=== PATIENT | male | born 1950 | race Caucasian/White ===

== ENCOUNTER 2023-04-02 08:44 | Observation (INO) ==
--- NOTE | 2023-04-02 09:24 | ED.PDOC ---
General ED Provider: Dr. RAJENDRA HENRIQUEZ MD Chief Complaint: Abdominal Pain Stated Complaint: Patient presents to ER from home accompanied by his and grandson complaining of "upset stomach". Reports onset was yesterday afternoon at approximately 3 PM. Says it happened after drinking coffee at [employer]. When he got home he took some OTC Tums and Pepto-Bismol at approximately 5 PM. States that "upset stomach" resolved at that time. Still complaining of intermittent upset stomach to his and she noticed he had a dark BM this morning so brought him to the nearest ER for further work-up and management. Denies fever chills nausea vomiting diarrhea. No other complaints. Patient's states he has not taken any blood pressure meds in the past 3 years during COVID-19 pandemic. Home BP ~200/100. Time Seen by Provider: 04/02/23 09:38 Mode of Arrival: Walk-In Information Source: Patient Exam Limitations: No limitations Primary Care Provider: JOSE A MICHEL Nursing and Triage Documentation Reviewed and Agree: Yes Review of Systems Review Of Systems Constitutional: Reports No symptoms All Other Systems: Reviewed and Negative [facility] Medical History (Updated 04/02/23 @ 13:03 by RAJENDRA HENRIQUEZ MD) Hypertension for years I10 - Essential (primary) hypertension (ICD-10) Family History FATHER Heart attack Social History Smoking and tobacco status: Never smoker Alcohol intake: never Substance use type: does not use Dea/yarsani: NONE Special dea needs: No Agree to transfusion: Yes Adopted: No Caregiver/support person: No Foster care: No Household members: spouse Housing: house Marital status: M Lives independently: Yes Daycare: no daycare Number of children: 2 Number of grandchildren: 1 Highest education level completed: high school graduate Financial difficulty paying for basics: not very hard service: No long term: No Current occupational status: retired Current occupational exposures/hazards: No Pets and animals: No Leisure activites: fishing History of recent travel: Yes ([place]) Current gender identity: male Seatbelt use: always Helmet use: No Drives intoxicated or rides with intoxicated cryogenic transport driver: No Water heater temperature set < 120 degrees: Yes Working smoke detector in home: Yes Fire extinguisher in home: No Carbon monoxide detector in home: No Firearms in home: Yes Firearms unloaded and locked: Yes Physical Exam Physical Exam Appearance: Reports Well-appearing Ill-appearing: None Pain Distress: None Eyes: Reports SMILEY and EOMI ENT: Reports Ears normal, Nose normal and Oropharynx normal Neck: Supple Respiratory: Reports Airway patent, Breath sounds clear and Breath sounds equal Cardiovascular: Reports RRR, Pulses normal and No murmur GI/: Reports Soft, Nontender, Bowel sounds normal and Other (No guarding, no rebound tenderness. RADHA: No nodules palpated. Garage Door Opener Installer: Lorraine Flores RN) Musculoskeletal: Reports Normal strength and ROM intact Skin: Reports Warm and Dry Neurological: Reports Sensation intact and Motor intact Psychiatric: Reports Affect appropriate Interpretation EKG Interpretation EKG Interpretation By: ED Physician Time of EKG #1: 09:28 Rate: Normal Rhythm: Sinus Ectopy: None [place]: NL Interpretation: NSR, incomplete RBBB, HR 84, ID 204, QRS 96, QTc 432, interpreted by me. Physician Notification Case Discussed Physician Notified: Kaycee Scott PA-C Time of Notification: 12:55 Comments: Notified by staff at beginning of shift on 3patient's primary care provider, Dr. Skip Puga is not available to round on patients this weekend. Subsequently contacted on-call hospitalist (Kaycee Scott PA-C) regarding patient status and current work-up and management for hypertensive urgency and concern for "upset stomach" possibly related to suspicious pancreatic lesion(s). Agreed to admit patient for observation for further work-up and management. Admit/Transition Orders Entered by ED Provider: No Admit To: Observation Critical Care Note Critical Care Note Total Critical Care Time (mins): 0 Course Course 04/02/23 10:03 04/02/23 10:03 Orders, Labs, Meds: Lab Review 04/02/23 04/02/23 04/02/23 09:10 09:36 10:03 WBC 14.39 H RBC 5.44 Hgb 14.2 Hct 44.4 MCV 81.6 MCH 26.1 L MCHC 32.0 RDW Coeff of Christel 12.5 Plt Count 363 Immature Gran % (Auto) 0.4 Neut % (Auto) 81.4 H Lymph % (Auto) 10.0 Mcdonald % (Auto) 7.4 Eos % (Auto) 0.6 Baso % (Auto) 0.2 Neut # (Auto) 11.7 H Lymph # (Auto) 1.4 Mcdonald # (Auto) 1.1 Eos # (Auto) 0.1 Baso # (Auto) 0.0 Immature Gran # (Auto) 0.1 Sodium 136.2 Potassium 4.11 Chloride 104.6 Carbon Dioxide 24.0 Anion Gap 11.71 BUN 20.7 H Creatinine 1.43 H Estimated GFR (MDRD) 48.00 BUN/Creatinine Ratio 14.47 Glucose 127.1 H Calcium 9.22 Total Bilirubin 1.96 H AST 28.3 ALT 25.1 Alkaline Phosphatase 106.0 Troponin I < 0.012 Total Protein 8.50 H Albumin 4.33 Globulin 4.17 Albumin/Globulin Ratio 1.03 Lipase 313.6 H Stl Occult Blood (IFOB) Stool Occult Blood #2 Stool Occult Blood #3 Influ A Molecular Assay Negative by naat Influ B Molecular Assay Negative by naat RSV Antigen Negative by naat SARS CoV-2 RNA Rapid BHAVIN Negative 04/02/23 10:16 WBC RBC Hgb Hct MCV MCH MCHC RDW Coeff of Christel Plt Count Immature Gran % (Auto) Neut % (Auto) Lymph % (Auto) Mcdonald % (Auto) Eos % (Auto) Baso % (Auto) Neut # (Auto) Lymph # (Auto) Mcdonald # (Auto) Eos # (Auto) Baso # (Auto) Immature Gran # (Auto) Sodium Potassium Chloride Carbon Dioxide Anion Gap BUN Creatinine Estimated GFR (MDRD) BUN/Creatinine Ratio Glucose Calcium Total Bilirubin AST ALT Alkaline Phosphatase Troponin I Total Protein Albumin Globulin Albumin/Globulin Ratio Lipase Stl Occult Blood (IFOB) Negative Stool Occult Blood #2 Negative Stool Occult Blood #3 Negative Influ A Molecular Assay Influ B Molecular Assay RSV Antigen SARS CoV-2 RNA Rapid BHAVIN Orders Category Date Time Status ADMIT OBSERVATION [PLACE PATIENT OBSERVATION] .TO ADMISSION 04/02/23 13:04 Active MEDSURG (MONITORED BED) EKG-(ED ONLY) Stat CARDIO 04/02/23 09:20 Completed NPO REMINDER: IMAGING ONCE CARE 04/02/23 10:37 Completed TELEMETRY MONITORING TELE CARE 04/02/23 13:04 Active ED TRIM MACHINE ADJUSTER APPLIED .ONCE EMERGENCY 04/02/23 09:30 Active Vital signs [ED VITAL SIGNS] .ONCE EMERGENCY 04/02/23 09:30 Active CBC W/ AUTO DIFF Stat LAB 04/02/23 10:03 Completed CMP [COMPREHENSIVE METABOLIC PANEL] Stat LAB 04/02/23 10:03 Completed FLU A/B MOLECULAR Stat LAB 04/02/23 09:10 Completed HEMOCCULT [OCCULT BLOOD, STOOL] Stat LAB 04/02/23 10:16 Completed LIPASE Stat LAB 04/02/23 10:03 Completed RSV Stat LAB 04/02/23 09:10 Completed SARS COV-2 RNA RAPID BHAVIN Stat LAB 04/02/23 09:10 Completed TROPONIN I Stat LAB 04/02/23 09:36 Completed URINALYSIS C & S IF INDICATED Stat LAB 04/02/23 11:20 Uncollected Acetaminophen Meds 04/02/23 10:56 Discontinued 1,000 mg in 100 ml IV ONCE Hydralazine HCl Meds 04/02/23 12:43 Discontinued 10 mg IVP ONCE STA Metoprolol Tartrate [Lopressor] Meds 04/02/23 10:50 Discontinued 5 mg IVP ONCE STA Metoprolol Tartrate [Lopressor] Meds 04/02/23 11:24 Discontinued 5 mg IVP ONCE STA Ondansetron HCl/Pf [Zofran 4 mg/2 ml] Meds 04/02/23 10:49 Discontinued 4 mg IVP ONCE STA Pantoprazole Sodium [Protonix IV] Meds 04/02/23 10:49 Discontinued 40 mg IVP ONCE STA Sodium Chloride 0.9% [Sodium Chloride] 1,000 ml Meds 04/02/23 10:49 Discontinued IV BOLUS ABDOMEN 1 VIEW Stat RADS 04/02/23 09:20 Completed CHEST, 1V AP ONLY Stat RADS 04/02/23 09:[address] ABDOMEN/PELVIS W CONTRAST Stat RADS 04/02/23 10:37 Completed Medications Discontinued Medications Generic Name Dose Route Start Last Admin Trade Name Freq PRN Reason Stop Dose Admin Hydralazine HCl 10 mg 04/02/23 12:43 04/02/23 12:57 Hydralazine Hcl 20 Mg/Ml Sdv IVP 04/02/23 12:44 10 mg ONCE STA Administration Sodium Chloride 1,000 mls @ 1,000 mls/hr 04/02/23 10:49 04/02/23 12:09 Sodium Chloride IV 04/02/23 11:48 Infused BOLUS STA Infusion Acetaminophen 1,000 mg in 100 mls @ 400 mls/hr 04/02/23 10:56 04/02/23 11:27 Acetaminophen IV 04/02/23 11:10 400 mls/hr ONCE ONE Administration Metoprolol Tartrate 5 mg 04/02/23 10:50 04/02/23 11:05 Metoprolol Tartrate 5 Mg/5 Ml Vial IVP 04/02/23 10:51 5 mg ONCE STA Administration Metoprolol Tartrate 5 mg 04/02/23 11:24 04/02/23 11:28 Metoprolol Tartrate 5 Mg/5 Ml Vial IVP 04/02/23 11:25 5 mg ONCE STA Administration Ondansetron HCl 4 mg 04/02/23 10:49 04/02/23 11:05 Ondansetron Hcl/Pf 4 Mg/2 Ml Sdv IVP 04/02/23 10:50 4 mg ONCE STA Administration Pantoprazole Sodium 40 mg 04/02/23 10:49 04/02/23 11:05 Pantoprazole Sodium 40 Mg Vial IVP 04/02/23 10:50 40 mg ONCE STA Administration Vital Signs: Temp Pulse Resp BP Pulse Ox 04/02/23 12:55 202/104 H 04/02/23 10:57 198/100 H 04/02/23 08:47 99.0 F 87 16 197/111 H [address] [place] [address] Report : [id number] Signed Patient: SIVAKUMAR DUFF Acct:[id number] Medical Record: [id number] : 1950 Loc: ED Room/Bed: Age/Sex: 73 / M ADM Status: REG ER Date of Service: 04/02/23 Ordering Physician: RAJENDRA HENRIQUEZ MD Procedure(s): CT ABDOMEN/PELVIS W CONTRAST Report Number(s): [id number] Accession Number(s): [id number] cc: SKIP PUGA MD; RAJENDRA HENRIQUEZ MD EXAM: CT ABDOMEN AND PELVIS WITH CONTRAST. HISTORY: Nausea, elevated lipase. COMPARISON: None. TECHNIQUE: Axial CT imaging of the abdomen and pelvis was performed with IV contrast. Sagittal and coronal reformations were performed. FINDINGS: Focal pleural thickening involving the lingula. A para esophageal hernia and small hiatal hernia are present. A 0.8 cm low density is involving the pancreatic neck. 1.1 cm low density involving the pancreatic head. Uniform enhancement of the pancreas otherwise is noted with no Mark pancreatic mesenteric stranding or fluid collection. The liver, spleen, gallbladder and adrenal glands are within normal limits. There is no intrahepatic mass or ductal dilatation. Scattered normal-sized mesenteric lymph nodes with stranding of the small bowel mesentery. No mesenteric or retroperitoneal lymphadenopathy is seen. The right kidney shows normal enhancement with bilateral low-density cortical lesions. Subtle decreased enhancement of the left kidney compared to the right. A 0.2 cm nonobstructing calculus is present in the left lower pole collecting system. Mild left hydronephrosis and hydroureter secondary to a 0.3 cm calculus in the distal left ureter, just proximal to the ureteral vesicle junction.. The aorta is normal in course and caliber. Small fat-containing umbilical hernia. The appendix is normal. Scattered colonic diverticula with no adjacent inflammatory process. Mild bowel wall thickening involving the splenic flexure and descending colon. No pathologically dilated loops of large or small bowel. There is no free air or fluid seen in the abdomen or pelvis. The urinary bladder is unremarkable. Small bilateral fat containing inguinal hernias. Age appropriate degenerative osseous findings. IMPRESSION: 1. Mild left hydroureteral nephrosis secondary to a 0.3 cm calculus in the distal left ureter, just proximal to the ureteral vesicle junction. Findings are suggestive of mild compromise of the left renal function. 2. Nonobstructing left nephrolithiasis. 3. Indeterminate pancreatic lesions measuring up to 1.1 cm. A non emergent MRI of the abdomen is recommended for further characterization. No acute pancreatitis. 4. Chronic mesenteric panniculitis. 5. Bowel wall thickening involving the splenic flexure and descending colon which may be secondary to nondistension versus colitis. All CT scans are performed using dose optimization techniques as appropriate to the performed exam and include at least one of the following: Automated exposure control, adjustment of the mA and/or kV according to size, and the use of iterative reconstruction technique. Dictated By: BABAK MELENDEZ Signed By: BABAK MELENDEZ Dictated Date/Time: 04/02/23 1230 Transcribed Date/Time: 04/02/23 1230 Signed Date/Time: 04/02/23 1246 Discharge Plan Discharge Patient Disposition: PLACED OBSERVATION Discharge Problem: Hypertensive urgency, Pancreatic mass Did you review [place] [facility] CONSULTANT for ALL controlled substances?: Not Applicable ED Provider: RAJENDRA HENRIQUEZ Condition: Good Physician Progress Note: []
--- NOTE | 2023-04-02 09:42 | DI ---
EXAM: CHEST RADIOGRAPH (1 VIEW) TECHNIQUE: Frontal Chest Radiograph. HISTORY: Cough, distended abdomen COMPARISON: 02/03/2022. FINDINGS: Lines, Tubes, Devices: None Lungs and Pleura: No focal consolidation. No pleural effusion. No pneumothorax. Atelectasis and / or scarring in the left mid lung. Cardiac silhouette: Normal. Bones: No acute abnormality. IMPRESSION: Atelectasis and / or scarring in the left mid lung. No dense consolidation. If symptoms persist, follow-up imaging is recommended.
--- NOTE | 2023-04-02 09:44 | DI ---
EXAMINATION: SINGLE VIEW OF THE ABDOMEN. HISTORY: Distended abdomen COMPARISONS: None. FINDINGS: Nondilated loops of bowel overlie the abdomen and pelvis. There are no suspicious calcifi cations. No evidence of organomegaly is seen. Degenerative changes to the spine, pelvis and hips. IMPRESSION: Nonobstructive bowel gas pattern.
[2023-04-02 10:07] LABS: SARS COV-2 RNA RAPID NAAT NEGATIVE (NEGATIVE)
[2023-04-02 10:08] LABS: MOLECULAR FLU A NEGATIVE BY NAAT (NEGATIVE); MOLECULAR FLU B NEGATIVE BY NAAT (NEGATIVE); RSV MOLECULAR NEGATIVE BY NAAT (NEGATIVE)
[2023-04-02 10:20] LABS: BASOPHILS % (AUTO) 0.2 % (0.0-3.0); EOSINOPHILS # (AUTO) 0.1 K/ul (0.0-0.7); EOSINOPHILS % (AUTO) 0.6 % (0.0-7.0); HEMATOCRIT 44.4 % (42.0-52.0); HEMOGLOBIN 14.2 g/dl (14.0-18.0); IMMATURE GRANULOCYTE # (AUTO) 0.1 (0.0-1.0); IMMATURE GRANULOCYTE % (AUTO) 0.4 % (0.0-5.0); LYMPHOCYTES # (AUTO) 1.4 K/uL (0.60-3.4); MEAN CORPUSCULAR HEMOGLOBIN 26.1 pg (27.0-31.0); MEAN CORPUSCULAR VOLUME 81.6 fl (80.0-94.0); MONOCYTES # (AUTO) 1.1 K/uL (0.4-2.0); MONOCYTES % (AUTO) 7.4 (0-10); NEUTROPHILS # (AUTO) 11.7 K/ul (2.0-6.9); NEUTROPHILS % (AUTO) 81.4 % (42.2-75.2); PLATELET COUNT 363 10^3/uL (140-440); RDW COEFFICIENT OF VARIATION 12.5 % (11.6-14.8); RED BLOOD COUNT 5.44 10^6/ul (4.70-6.10); WHITE BLOOD COUNT 14.39 K/ul (4.2-10.2)
[2023-04-02 10:25] LABS: ALANINE AMINOTRANSFERASE 25.1 U/L (0-50); ALBUMIN 4.33 g/dL (3.5-5.0); ASPARTATE AMINO TRANSFERASE 28.3 U/L (17-59); BILIRUBIN,TOTAL 1.96 mg/dL (0.2-1.3); BLOOD UREA NITROGEN 20.7 mg/dL (9-20); CALCIUM 9.22 mg/dL (8.4-10.2); CHLORIDE 104.6 mmol/L (98-107); CREATININE 1.43 mg/dL (0.60-1.10); GLUCOSE 127.1 mg/dL (74-106); LIPASE 313.6 U/L (23-300); POTASSIUM 4.11 mmol/L (3.5-5.1); SODIUM 136.2 mmol/L (134.5-145); TOTAL PROTEIN 8.5 g/dL (6.3-8.2)
[2023-04-02] MEDS ORDERED: PROTONIX IV IVP STA (10:49)
[2023-04-02] MEDS ORDERED: ZOFRAN 4 MG/2 ML IVP STA (10:49)
[2023-04-02] MEDS ORDERED: SODIUM CHLORIDE 1,000 ML IV STA (10:49)
[2023-04-02] MEDS ORDERED: LOPRESSOR IVP STA ×2 (10:50→11:24)
[2023-04-02] MEDS ORDERED: ACETAMINOPHEN 1,000 MG/100 ML BAG IV ONE (10:56)
[2023-04-02 11:15] LABS: OCCULT BLOOD SAMPLE 1 NEGATIVE (NEGATIVE)
[2023-04-02] MEDS ORDERED: HYDRALAZINE HCL IVP STA (12:43)
--- NOTE | 2023-04-02 12:46 | CT ---
EXAM: CT ABDOMEN AND PELVIS WITH CONTRAST. HISTORY: Nausea, elevated lipase. COMPARISON: None. TECHNIQUE: Axial CT imaging of the abdomen and pelvis was performed with IV contrast. Sagittal and c oronal reformations were performed. FINDINGS: Focal pleural thickening involving the lingula. A para esophageal hernia and small hiatal hernia are present. A 0.8 cm low density is involving the pancreatic neck. 1.1 cm low density involving the pancreatic h ead. Uniform enhancement of the pancreas otherwise is noted with no Mark pancreatic mesenteric stra nding or fluid collection. The liver, spleen, gallbladder and adrenal glands are within normal limits. There is no intrahepatic mass or ductal dilatation. Scattered normal-sized mesenteric lymph nodes with stranding of the smal l bowel mesentery. No mesenteric or retroperitoneal lymphadenopathy is seen. The right kidney shows normal enhancement with bilateral low-density cortical lesions. Subtle decrea sed enhancement of the left kidney compared to the right. A 0.2 cm nonobstructing calculus is presen t in the left lower pole collecting system. Mild left hydronephrosis and hydroureter secondary to a 0.3 cm calculus in the distal left ureter, just proximal to the ureteral vesicle junction.. The aorta is normal in course and caliber. Small fat-containing umbilical hernia. The appendix is normal. Scattered colonic diverticula with no adjacent inflammatory process. Mild b owel wall thickening involving the splenic flexure and descending colon. No pathologically dilated l oops of large or small bowel. There is no free air or fluid seen in the abdomen or pelvis. The urin elizabeth bladder is unremarkable. Small bilateral fat containing inguinal hernias. Age appropriate degen erative osseous findings. IMPRESSION: 1. Mild left hydroureteral nephrosis secondary to a 0.3 cm calculus in the distal left ureter, just proximal to the ureteral vesicle junction. Findings are suggestive of mild compromise of the left re nal function. 2. Nonobstructing left nephrolithiasis. 3. Indeterminate pancreatic lesions measuring up to 1.1 cm. A non emergent MRI of the abdomen is re commended for further characterization. No acute pancreatitis. 4. Chronic mesenteric panniculitis. 5. Bowel wall thickening involving the splenic flexure and descending colon which may be secondary t o nondistension versus colitis. All CT scans are performed using dose optimization techniques as appropriate to the performed exam an d include at least one of the following: Automated exposure control, adjustment of the mA and/or kV according t o size, and the use of iterative reconstruction technique.
[2023-04-02 12:57] LABS: OCCULT BLOOD SAMPLE 2 NEGATIVE (NEGATIVE); OCCULT BLOOD SAMPLE 3 NEGATIVE (NEGATIVE)
--- NOTE | 2023-04-02 14:23 | PCM ---
Date of Service Date Seen by Provider: 04/02/23 Time Seen by Provider: 14:30 Admit Day/Time Admission Date: 04/02/23 Admission Time: 13:04 Reason for Admission Chief Complaint: HYPERTENSION,URGENCY Hospital Provider Hospital Provider: SHAWN ROCHE PA-C, [facility] [place] Care Physician Primary Care Physician: VIRGILIO PUGA MD History of Present Illness History of Present Illness: Patient is a 73 year old male with pmhx of hypertension who presented to ER with "upset stomach" since yesterday. He denies n/v/d. concerned he had a dark stool. No fever. Denies urinary symptoms. In ER labs showed mild leukocytosis, mildly elevated cr and bun. CT abd/pelvis showed 3 mm stone on the left with mild hydronephrosis. He was also noted to have indeterminate pancreatic lesions measuring up to 1.1 cm. Occult stool negative. His BP was elevated above 200 systolic. He was given metoprolol 5 mg IVP x2 and hydralazine IVP without relief. He was admitted to [facility] for abd pain control and hypertensive urgency. Case Discussed With Case Discussed With: Patient's case was discussed with the ER Physicians, Dr. Angeles. [facility] Medical History Hypertension for years I10 - Essential (primary) hypertension (ICD-10) Family History FATHER Heart attack Social History Smoking and tobacco status: Former smoker Alcohol intake: current Substance use type: does not use Dea/methodist: NONE Special dea needs: No Agree to transfusion: Yes Adopted: No Caregiver/support person: No Foster care: No Household members: spouse Housing: house Marital status: M Lives independently: Yes Daycare: no daycare Number of children: 2 Number of grandchildren: 1 Highest education level completed: high school graduate Financial difficulty paying for basics: not very hard service: No custodial: No Current occupational status: retired Current occupational exposures/hazards: No Pets and animals: No Leisure activites: fishing History of recent travel: Yes ([place]) Current gender identity: male Seatbelt use: always Helmet use: No Drives intoxicated or rides with intoxicated bus driver/monitor: No Water heater temperature set < 120 degrees: Yes Working smoke detector in home: Yes Fire extinguisher in home: No Carbon monoxide detector in home: No Firearms in home: Yes Firearms unloaded and locked: Yes Allergies Allergies Allergy/AdvReac Type Severity Reaction Status Date / Time Penicillins AdvReac Verified 04/02/23 14:08 Current Medications Home Medications amlodipine 5 mg tablet 5 mg PO DAILY #30 tabs 04/03/23 [Rx Last Taken Unknown] hydrocodone 5 mg-acetaminophen 325 mg tablet 1 tab PO Q6-8H PRN moderate pain (scale score 5-6) #12 tabs 04/03/23 [Rx Last Taken Unknown] tamsulosin 0.4 mg capsule 0.4 mg PO DAILY #7 caps 04/03/23 [Rx Last Taken Unknown] Home Acetaminophen (Acetaminophen 325 Mg Tablet) 650 mg PO Q4H PRN PRN Reason: Mild Pain Amlodipine Besylate (Amlodipine Besylate 5 Mg Tablet) 5 mg PO DAILY [facility] Last Admin: 04/03/23 08:50 Dose: 5 mg Hydralazine HCl (Hydralazine Hcl 20 Mg/Ml Sdv) 10 mg IVP Q6H PRN PRN Reason: Hypertension Lactated Ringer's (Lactated Ringers) 1,000 mls @ 100 mls/hr IV .Q10H [facility] Last Infusion: 04/03/23 09:27 Dose: Infused Ketorolac Tromethamine (Ketorolac Tromethamine 15 Mg/Ml Vial) 15 mg IVP Q6HR PRN PRN Reason: Pain Stop: 04/06/23 15:02 Last Admin: 04/03/23 03:50 Dose: 15 mg Morphine Sulfate (Morphine Sulfate 2 Mg/Ml Syringe) 2 mg IVP Q6H PRN PRN Reason: MODERATE PAIN Ondansetron HCl (Ondansetron Hcl/Pf 4 Mg/2 Ml Sdv) 4 mg IVP Q6H PRN PRN Reason: Nausea / Vomiting Tamsulosin HCl (Tamsulosin Hcl 0.4 Mg Cap.Er.24h) 0.4 mg PO DAILY [facility] Last Admin: 04/03/23 08:50 Dose: 0.4 mg Discontinued Medications Bisacodyl (Bisacodyl 5 Mg Tablet.) 5 mg PO ONCE ONE Stop: 04/02/23 15:02 Last Admin: 04/02/23 16:09 Dose: 5 mg Hydralazine HCl (Hydralazine Hcl 20 Mg/Ml Sdv) 10 mg IVP ONCE STA Stop: 04/02/23 12:44 Last Admin: 04/02/23 12:57 Dose: 10 mg Sodium Chloride (Sodium Chloride) 1,000 mls @ 1,000 mls/hr IV BOLUS STA Stop: 04/02/23 11:48 Last Infusion: 04/02/23 12:09 Dose: Infused Acetaminophen (Acetaminophen) 1,000 mg in 100 mls @ 400 mls/hr IV ONCE ONE Stop: 04/02/23 11:10 Last Admin: 04/02/23 11:27 Dose: 400 mls/hr Metoprolol Tartrate (Metoprolol Tartrate 5 Mg/5 Ml Vial) 5 mg IVP ONCE STA Stop: 04/02/23 10:51 Last Admin: 04/02/23 11:05 Dose: 5 mg Metoprolol Tartrate (Metoprolol Tartrate 5 Mg/5 Ml Vial) 5 mg IVP ONCE STA Stop: 04/02/23 11:25 Last Admin: 04/02/23 11:28 Dose: 5 mg Ondansetron HCl (Ondansetron Hcl/Pf 4 Mg/2 Ml Sdv) 4 mg IVP ONCE STA Stop: 04/02/23 10:50 Last Admin: 04/02/23 11:05 Dose: 4 mg Pantoprazole Sodium (Pantoprazole Sodium 40 Mg Vial) 40 mg IVP ONCE STA Stop: 04/02/23 10:50 Last Admin: 04/02/23 11:05 Dose: 40 mg Review of Systems Constitutional: Denies Recent Weight Loss or Loss of appetite Head: Reports Normocephalic and Atraumatic Throat: Denies Sore Throat Cardiovascular: Denies Chest pain, Chest Pressure or Edema Respiratory: Denies Cough or Shortness of air Gastrointestinal: Reports Abdominal pain; Denies Nausea, Vomiting, Diarrhea or Melena Genitourinary: Denies Dysuria, Hematuria, Frequency or Incontinent Bladder Dermatologic: Denies Rashes Neurological: Denies Weakness or Problems with walking Physical examination Most Recent Vital Signs: Most Recent Vital Signs Temperature 99.0 F 04/02/23 08:47 Temperature Source Temporal Artery Scan 04/02/23 08:47 Pulse Rate 69 04/02/23 14:06 Respiratory Rate 20 04/02/23 14:06 Blood Pressure 158/87 H 04/02/23 14:06 O2 Sat by Pulse Oximetry 97 04/02/23 14:06 Height 5 ft 6 in 04/02/23 08:47 Weight 177 lb 04/02/23 08:47 Appearance: Positive Well-appearing, Well-nourished, No Apparent Distress and Alert and Oriented x3 Skin: Positive [place], Warm and Good Turgor; Negative Rashes HEENT: Positive Other (+deformity of left eye/periorbital area, chronic ) Neck: Positive Supple and Midline Trachea Chest/Lungs: Positive Clear to Auscultation Bilaterally; Negative Rales, Rhonci or Wheezes Heart: Positive RRR and Murmur GI/: Positive Soft, Bowel Sounds Normal, No Distention and Tender (LLQ) Extremities: Negative Edema Neurological: Positive Cranial Nerves Intact, Alert, Oriented, Muscle Strength 5/5 in Upper and Lower Extremities Bilaterally and Other Psychiatric: Positive Oriented x4 (Answers questions appropriately but does help contribute to pmhx. ), Appropriate Mood and Appropriate Affect Labs This Visit Labs This Visit: Labs This Visit 04/02/23 04/02/23 04/02/23 09:10 09:36 10:03 WBC 14.39 H RBC 5.44 Hgb 14.2 Hct 44.4 MCV 81.6 MCH 26.1 L MCHC 32.0 RDW Coeff of Christel 12.5 Plt Count 363 Immature Gran % (Auto) 0.4 Neut % (Auto) 81.4 H Lymph % (Auto) 10.0 [place] % (Auto) 7.4 Eos % (Auto) 0.6 Baso % (Auto) 0.2 Neut # (Auto) 11.7 H Lymph # (Auto) 1.4 [place] # (Auto) 1.1 Eos # (Auto) 0.1 Baso # (Auto) 0.0 Immature Gran # (Auto) 0.1 Sodium 136.2 Potassium 4.11 Chloride 104.6 Carbon Dioxide 24.0 Anion Gap 11.71 BUN 20.7 H Creatinine 1.43 H Estimated GFR (MDRD) 48.00 BUN/Creatinine Ratio 14.47 Glucose 127.1 H Calcium 9.22 Total Bilirubin 1.96 H AST 28.3 ALT 25.1 Alkaline Phosphatase 106.0 Troponin I < 0.012 Total Protein 8.50 H Albumin 4.33 Globulin 4.17 Albumin/Globulin Ratio 1.03 Lipase 313.6 H Stl Occult Blood (IFOB) Stool Occult Blood #2 Stool Occult Blood #3 Influ A Molecular Assay Negative by naat Influ B Molecular Assay Negative by naat RSV Antigen Negative by naat SARS CoV-2 RNA Rapid BHAVIN Negative 04/02/23 10:16 WBC RBC Hgb Hct MCV MCH MCHC RDW Coeff of Christel Plt Count Immature Gran % (Auto) Neut % (Auto) Lymph % (Auto) [place] % (Auto) Eos % (Auto) Baso % (Auto) Neut # (Auto) Lymph # (Auto) [place] # (Auto) Eos # (Auto) Baso # (Auto) Immature Gran # (Auto) Sodium Potassium Chloride Carbon Dioxide Anion Gap BUN Creatinine Estimated GFR (MDRD) BUN/Creatinine Ratio Glucose Calcium Total Bilirubin AST ALT Alkaline Phosphatase Troponin I Total Protein Albumin Globulin Albumin/Globulin Ratio Lipase Stl Occult Blood (IFOB) Negative Stool Occult Blood #2 Negative Stool Occult Blood #3 Negative Influ A Molecular Assay Influ B Molecular Assay RSV Antigen SARS CoV-2 RNA Rapid BHAVIN Imaging Imaging: EXAM: CHEST RADIOGRAPH (1 VIEW) TECHNIQUE: Frontal Chest Radiograph. HISTORY: Cough, distended abdomen COMPARISON: 02/03/2022. FINDINGS: Lines, Tubes, Devices: None Lungs and Pleura: No focal consolidation. No pleural effusion. No pneumothorax. Atelectasis and / or scarring in the left mid lung. Cardiac silhouette: Normal. Bones: No acute abnormality. IMPRESSION: Atelectasis and / or scarring in the left mid lung. No dense consolidation. If symptoms persist, follow-up imaging is recommended. EXAMINATION: SINGLE VIEW OF THE ABDOMEN. HISTORY: Distended abdomen COMPARISONS: None. FINDINGS: Nondilated loops of bowel overlie the abdomen and pelvis. There are no suspicious calcifications. No evidence of organomegaly is seen. Degenerative changes to the spine, pelvis and hips. IMPRESSION: Nonobstructive bowel gas pattern. EXAM: CT ABDOMEN AND PELVIS WITH CONTRAST. HISTORY: Nausea, elevated lipase. COMPARISON: None. TECHNIQUE: Axial CT imaging of the abdomen and pelvis was performed with IV contrast. Sagittal and coronal reformations were performed. FINDINGS: Focal pleural thickening involving the lingula. A para esophageal hernia and small hiatal hernia are present. A 0.8 cm low density is involving the pancreatic neck. 1.1 cm low density involving the pancreatic head. Uniform enhancement of the pancreas otherwise is noted with no Mark pancreatic mesenteric stranding or fluid collection. The liver, spleen, gallbladder and adrenal glands are within normal limits. There is no intrahepatic mass or ductal dilatation. Scattered normal-sized mesenteric lymph nodes with stranding of the small bowel mesentery. No mesenteric or retroperitoneal lymphadenopathy is seen. The right kidney shows normal enhancement with bilateral low-density cortical lesions. Subtle decreased enhancement of the left kidney compared to the right. A 0.2 cm nonobstructing calculus is present in the left lower pole collecting system. Mild left hydronephrosis and hydroureter secondary to a 0.3 cm calculus in the distal left ureter, just proximal to the ureteral vesicle junction.. The aorta is normal in course and caliber. Small fat-containing umbilical hernia. The appendix is normal. Scattered colonic diverticula with no adjacent inflammatory process. Mild bowel wall thickening involving the splenic flexure and descending colon. No pathologically dilated loops of large or small bowel. There is no free air or fluid seen in the abdomen or pelvis. The urinary bladder is unremarkable. Small bilateral fat containing inguinal hernias. Age appropriate degenerative osseous findings. IMPRESSION: 1. Mild left hydroureteral nephrosis secondary to a 0.3 cm calculus in the distal left ureter, just proximal to the ureteral vesicle junction. Findings are suggestive of mild compromise of the left renal function. 2. Nonobstructing left nephrolithiasis. 3. Indeterminate pancreatic lesions measuring up to 1.1 cm. A non emergent MRI of the abdomen is recommended for further characterization. No acute pancreatitis. 4. Chronic mesenteric panniculitis. 5. Bowel wall thickening involving the splenic flexure and descending colon which may be secondary to nondistension versus colitis. Review Statement Review Statement: I have independently reviewed and interpreted the labs/EKGs/imaging that were ordered by the ER provider. I have reviewed all outside records that are available currently in our EMR including imaging/notes/labs from previous visits. Plan Plan: 1. Hypertensive urgency - Received metoprolol x2 and hydralazine in ER without relief. Pt has not seen pcp in several years. Add amlodipine 5 mg daily. Hydralazine 10 mg ivp q6hrs prn. Cardiac diet. Check lipids, a1c. 2. Left 3 mm distal ureter stone with mild hydronephrosis- Flomax, fluids, toradol prn, strain urine. F/u outpatient with urology. 3. Pancreatic lesions - Consider f/u outpatient for MRI if patient wishes DVT Prophylaxis: Ambulation Time Spent: Greater than 80 minutes spent with patient, 50% of the time spent with this patient was devoted to counseling and coordination of care. [facility] minutes spent discussing advance care planning. FULL CODE Admit to: Obs Discussed Plan of Care with Dr. Kim Puga.
[2023-04-02 14:45] VITALS: BMI 29.2
[2023-04-02] MEDS ORDERED: TYLENOL PO PRN (15:01)
[2023-04-02] MEDS ORDERED: MORPHINE 2 MG/ML SYRINGE IVP PRN (15:01)
[2023-04-02] MEDS ORDERED: HYDRALAZINE HCL IVP PRN (15:01)
[2023-04-02] MEDS ORDERED: TORADOL IVP PRN (15:01)
[2023-04-02] MEDS ORDERED: DULCOLAX PO ONE (15:01)
[2023-04-02] MEDS ORDERED: ZOFRAN 4 MG/2 ML IVP PRN (15:04)
[2023-04-02] MEDS: LACTATED RINGERS 1,000 ML IV SCH (16:09)
[2023-04-02] MEDS: FLOMAX PO SCH (16:09)
[2023-04-02] MEDS: NORVASC PO SCH (16:09)
[2023-04-02 16:23] LABS: BILIRUBIN,URINE Negative (NEGATIVE); CLARITY,URINE Clear (CLEAR); COLOR,URINE Yellow (YELLOW); GLUCOSE, URINE (UA) Negative (NEGATIVE); KETONES,URINE Negative (NEGATIVE); LEUKOCYTE ESTERASE ,URINE Negative (NEGATIVE); NITRITE,URINE Negative (NEGATIVE); PH,URINE 6.5 (5-9); PROTEIN,URINE 2+ (NEGATIVE); URINE, BLOOD 1+ (NEGATIVE); UROBILINOGEN,URINE 0.2 (0.2)
[2023-04-02 21:31] VITALS: RESP 18
[2023-04-03] MEDS: LACTATED RINGERS 1,000 ML IV SCH (01:45)
[2023-04-03 02:01] VITALS: TEMP 97.8
[2023-04-03 05:07] VITALS: BP 129/72; PULSE 73
[2023-04-03 05:44] LABS: BASOPHILS % (AUTO) 0.3 % (0.0-3.0); EOSINOPHILS # (AUTO) 0.2 K/ul (0.0-0.7); EOSINOPHILS % (AUTO) 1.6 % (0.0-7.0); HEMATOCRIT 37.2 % (42.0-52.0); HEMOGLOBIN 12.1 g/dl (14.0-18.0); IMMATURE GRANULOCYTE # (AUTO) 0.1 (0.0-1.0); IMMATURE GRANULOCYTE % (AUTO) 0.5 % (0.0-5.0); LYMPHOCYTES # (AUTO) 1.3 K/uL (0.60-3.4); MEAN CORPUSCULAR HEMOGLOBIN 26.8 pg (27.0-31.0); MEAN CORPUSCULAR HGB CONC 32.5 (31.8-35.4); MEAN CORPUSCULAR VOLUME 82.3 fl (80.0-94.0); MONOCYTES % (AUTO) 9.3 (0-10); NEUTROPHILS % (AUTO) 76.3 % (42.2-75.2); PLATELET COUNT 301 10^3/uL (140-440); RDW COEFFICIENT OF VARIATION 12.6 % (11.6-14.8); RED BLOOD COUNT 4.52 10^6/ul (4.70-6.10); WHITE BLOOD COUNT 10.44 K/ul (4.2-10.2)
[2023-04-03 05:51] LABS: ALANINE AMINOTRANSFERASE 18.5 U/L (0-50); ALBUMIN 3.24 g/dL (3.5-5.0); ALKALINE PHOSPHATASE 76.4 U/L (56-119); ASPARTATE AMINO TRANSFERASE 21.6 U/L (17-59); BLOOD UREA NITROGEN 23.7 mg/dL (9-20); CALCIUM 8.16 mg/dL (8.4-10.2); CARBON DIOXIDE 23.1 mmol/L (22-30.0); CHLORIDE 107.5 mmol/L (98-107); CREATININE 1.46 mg/dL (0.60-1.10); GLUCOSE 106.7 mg/dL (74-106); HDL CHOLESTEROL 33.2 mg/dL (35-60); POTASSIUM 4.25 mmol/L (3.5-5.1); SODIUM 134.7 mmol/L (134.5-145); TOTAL PROTEIN 6.69 g/dL (6.3-8.2); TRIGLYCERIDES 39.8 mg/dL (0-150)
[2023-04-03] MEDS: FLOMAX PO SCH (08:50)
[2023-04-03] MEDS: NORVASC PO SCH (08:50)
--- NOTE | 2023-04-03 09:08 | DCSUM ---
Admission Date Admission Date: 04/02/23 Discharge Date Discharge Date: 04/03/23 Admission Diagnosis Admission Diagnosis: 1. Hypertensive urgency 2. Left 3 mm distal ureter stone with mild hydronephrosis 3. Pancreatic lesions Discharge Diagnosis Discharge Diagnosis: 1. Hypertensive urgency - resolved 2. Left 3 mm distal ureter stone with mild hydronephrosis 3. Pancreatic lesions Hospital Provider Hospital Provider: SHAWN ROCHE PA-C, [facility] Primary Care Physician Primary Care Physician: VIRGILIO PUGA MD Summary of History and Physical Summary of History and Physical: Patient is a 73 year old male with pmhx of hypertension who presented to ER with "upset stomach" since yesterday. He denies n/v/d. concerned he had a dark stool. No fever. Denies urinary symptoms. In ER labs showed mild leukocytosis, mildly elevated cr and bun. CT abd/pelvis showed 3 mm stone on the left with mild hydronephrosis. He was also noted to have indeterminate pancreatic lesions measuring up to 1.1 cm. Occult stool negative. His BP was elevated above 200 systolic. He was given metoprolol 5 mg IVP x2 and hydralazine IVP without relief. [facility] for abd pain control and hypertensive urgency. Hospital Course Subjective: Patient was treated with flomax, fluids, toradol prn. His pain is controlled. UA negative for infection. He would like to be discharged. Since he has no current pcp and has not seen urology before, call [facility] (per pt request) transportation planner urology. Spoke with Dr. Holcomb, transportation planner urologist, he states he is a locums and does not follow outpatient. However he recommended they call Dr. Ben Muller's office tomorrow morning. Number provided to patient. He likely can pass the 3 mm stone on his own but arrange f/u in case of further issues. Will discharge on flomax and norco prn for pain. BP improved and patient was started on amlodipine 5 mg daily. F/u with Dr. Puga outpatient. Call for apt tomorrow. Discussed CT findings of pancreatic lesions. F.u outpatient with MRI if patient wishes. Appearance: Pleasant, No Apparent Distress and Alert HEENT: MMM CVS: Other (+murmur ) Abdomen: Soft, Non-Tender and No Distention Respiratory: No Dyspnea Extremities: No Edema Vital Signs: Most Recent Vital Signs Temperature 97.8 F 04/03/23 05:05 Temperature Source Oral 04/03/23 05:05 Temperature Source Temporal Artery Scan 04/02/23 08:47 Pulse Rate 73 04/03/23 05:05 Respiratory Rate 18 04/03/23 05:05 Blood Pressure 129/72 04/03/23 05:05 Blood Pressure Mean 91 04/03/23 05:05 Blood Pressure Left Arm 176/93 04/02/23 14:28 Blood Pressure Location Right Arm 04/03/23 05:05 Blood Pressure Position Supine 04/03/23 05:05 O2 Sat by Pulse Oximetry 97 04/03/23 05:05 Oxygen Delivery Method Room Air 04/03/23 09:00 Height 5 ft 6 in 04/02/23 14:28 Weight 181 lb 3.2 oz 04/02/23 14:28 Telemetry Type Remote Telemetry 04/03/23 07:00 Telemetry Monitoring Continues 04/03/23 07:00 Telemetry Heart Rate 76 04/03/23 07:00 EKG SD Interval 0.20 04/03/23 07:00 EKG QRS Interval 0.08 04/03/23 07:00 Telemetry Strip Reading SR 04/03/23 07:00 Imaging: EXAM: CHEST RADIOGRAPH (1 VIEW) TECHNIQUE: Frontal Chest Radiograph. HISTORY: Cough, distended abdomen COMPARISON: 02/03/2022. FINDINGS: Lines, Tubes, Devices: None Lungs and Pleura: No focal consolidation. No pleural effusion. No pneumothorax. Atelectasis and / or scarring in the left mid lung. Cardiac silhouette: Normal. Bones: No acute abnormality. IMPRESSION: Atelectasis and / or scarring in the left mid lung. No dense consolidation. If symptoms persist, follow-up imaging is recommended. EXAMINATION: SINGLE VIEW OF THE ABDOMEN. HISTORY: Distended abdomen COMPARISONS: None. FINDINGS: Nondilated loops of bowel overlie the abdomen and pelvis. There are no suspicious calcifications. No evidence of organomegaly is seen. Degenerative changes to the spine, pelvis and hips. IMPRESSION: Nonobstructive bowel gas pattern. EXAM: CT ABDOMEN AND PELVIS WITH CONTRAST. HISTORY: Nausea, elevated lipase. COMPARISON: None. TECHNIQUE: Axial CT imaging of the abdomen and pelvis was performed with IV contrast. Sagittal and coronal reformations were performed. FINDINGS: Focal pleural thickening involving the lingula. A para esophageal hernia and small hiatal hernia are present. A 0.8 cm low density is involving the pancreatic neck. 1.1 cm low density involving the pancreatic head. Uniform enhancement of the pancreas otherwise is noted with no Mark pancreatic mesenteric stranding or fluid collection. The liver, spleen, gallbladder and adrenal glands are within normal limits. There is no intrahepatic mass or ductal dilatation. Scattered normal-sized mesenteric lymph nodes with stranding of the small bowel mesentery. No mesenteric or retroperitoneal lymphadenopathy is seen. The right kidney shows normal enhancement with bilateral low-density cortical lesions. Subtle decreased enhancement of the left kidney compared to the right. A 0.2 cm nonobstructing calculus is present in the left lower pole collecting system. Mild left hydronephrosis and hydroureter secondary to a 0.3 cm calculus in the distal left ureter, just proximal to the ureteral vesicle junction.. The aorta is normal in course and caliber. Small fat-containing umbilical hernia. The appendix is normal. Scattered colonic diverticula with no adjacent inflammatory process. Mild bowel wall thickening involving the splenic flexure and descending colon. No pathologically dilated loops of large or small bowel. There is no free air or fluid seen in the abdomen or pelvis. The urinary bladder is unremarkable. Small bilateral fat containing inguinal hernias. Age appropriate degenerative osseous findings. IMPRESSION: 1. Mild left hydroureteral nephrosis secondary to a 0.3 cm calculus in the distal left ureter, just proximal to the ureteral vesicle junction. Findings are suggestive of mild compromise of the left renal function. 2. Nonobstructing left nephrolithiasis. 3. Indeterminate pancreatic lesions measuring up to 1.1 cm. A non emergent MRI of the abdomen is recommended for further characterization. No acute pancreatitis. 4. Chronic mesenteric panniculitis. 5. Bowel wall thickening involving the splenic flexure and descending colon which may be secondary to nondistension versus colitis. Lab Results Last 24 Hours: 04/03/23 04/02/23 04/02/23 05:04 16:17 10:16 WBC 10.44 H RBC 4.52 L Hgb 12.1 L Hct 37.2 L D MCV 82.3 MCH 26.8 L MCHC 32.5 RDW Coeff of Christel 12.6 Plt Count 301 Immature Gran % (Auto) 0.5 Neut % (Auto) 76.3 H Lymph % (Auto) 12.0 [place] % (Auto) 9.3 Eos % (Auto) 1.6 Baso % (Auto) 0.3 Neut # (Auto) 8.0 H Lymph # (Auto) 1.3 [place] # (Auto) 1.0 Eos # (Auto) 0.2 Baso # (Auto) 0.0 Immature Gran # (Auto) 0.1 Sodium 134.7 Potassium 4.25 Chloride 107.5 H Carbon Dioxide 23.1 Anion Gap 8.35 BUN 23.7 H Creatinine 1.46 H Estimated GFR (MDRD) 47.00 BUN/Creatinine Ratio 16.23 Glucose 106.7 H Hemoglobin A1c 5.53 Calcium 8.16 L Total Bilirubin 2.00 H AST 21.6 ALT 18.5 Alkaline Phosphatase 76.4 D Troponin I Total Protein 6.69 Albumin 3.24 L Globulin 3.45 Albumin/Globulin Ratio 0.93 Triglycerides 39.8 Cholesterol 135.0 LDL Cholesterol, Calc 94 VLDL Cholesterol 8 HDL Cholesterol 33.2 L Cholesterol/HDL Ratio 4.1 L Lipase Urine Color Yellow Urine Clarity Clear Urine pH 6.5 Ur Specific [place] 1.020 Urine Protein 2+ H Urine Glucose (UA) Negative Urine Ketones Negative Urine Blood 1+ H Urine Nitrite Negative Urine Bilirubin Negative Urine Urobilinogen 0.2 Ur Leukocyte Esterase Negative Urine Microscopic RBC 2-5 Ur Squamous Epith Cells 2-5 Stl Occult Blood (IFOB) Negative Stool Occult Blood #2 Negative Stool Occult Blood #3 Negative Influ A Molecular Assay Influ B Molecular Assay RSV Antigen SARS CoV-2 RNA Rapid BHAVIN 04/02/23 04/02/23 04/02/23 10:03 09:36 09:10 WBC 14.39 H RBC 5.44 Hgb 14.2 Hct 44.4 MCV 81.6 MCH 26.1 L MCHC 32.0 RDW Coeff of Christel 12.5 Plt Count 363 Immature Gran % (Auto) 0.4 Neut % (Auto) 81.4 H Lymph % (Auto) 10.0 [place] % (Auto) 7.4 Eos % (Auto) 0.6 Baso % (Auto) 0.2 Neut # (Auto) 11.7 H Lymph # (Auto) 1.4 [place] # (Auto) 1.1 Eos # (Auto) 0.1 Baso # (Auto) 0.0 Immature Gran # (Auto) 0.1 Sodium 136.2 Potassium 4.11 Chloride 104.6 Carbon Dioxide 24.0 Anion Gap 11.71 BUN 20.7 H Creatinine 1.43 H Estimated GFR (MDRD) 48.00 BUN/Creatinine Ratio 14.47 Glucose 127.1 H Hemoglobin A1c Calcium 9.22 Total Bilirubin 1.96 H AST 28.3 ALT 25.1 Alkaline Phosphatase 106.0 Troponin I < 0.012 Total Protein 8.50 H Albumin 4.33 Globulin 4.17 Albumin/Globulin Ratio 1.03 Triglycerides Cholesterol LDL Cholesterol, Calc VLDL Cholesterol HDL Cholesterol Cholesterol/HDL Ratio Lipase 313.6 H Urine Color Urine Clarity Urine pH Ur Specific [place] Urine Protein Urine Glucose (UA) Urine Ketones Urine Blood Urine Nitrite Urine Bilirubin Urine Urobilinogen Ur Leukocyte Esterase Urine Microscopic RBC Ur Squamous Epith Cells Stl Occult Blood (IFOB) Stool Occult Blood #2 Stool Occult Blood #3 Influ A Molecular Assay Negative by naat Influ B Molecular Assay Negative by naat RSV Antigen Negative by naat SARS CoV-2 RNA Rapid BHAVIN Negative Discharge Instructions Discharge Planning: Discharge Planning > [address] Kim Puga. Discharge Medications: Medications at Discharge (Home Meds & RX) 1 [No Reported Medications] 04/02/23 Discharge Plan Discharge Discharge Orders: Discharge Patient (ONCE); Ordered 04/03/23 Ordered By: SHAWN ROCHE Activity Restrictions/Additional Instructions: DISCHARGE TO HOME DX: LEFT KIDNEY STONE STRAIN URINE PHARMACY: [facility] NEW MEDICATIONS: AMLODIPINE (BLOOD PRESSURE), FLOMAX (URINE/KIDNEY STONE), AND NORCO (PAIN MEDICATION) STRAIN YOUR URINE FOR STONE CONSIDER FURTHER IMAGING OUTPATIENT SUCH MRI FOR PANCREATIC LESIONS CALL DR. PUGA'S OFFICE TUESDAY FOR APPOINTMENT CALL [facility], DR. BEN MULLER, FOR APPOINTMENT Instructions: How to Strain Your Urine (ED), Hypertensive Crisis (GEN) Patient Disposition: HOME SELF-CARE Prescriptions: New amlodipine 5 mg Tablet 5 mg PO DAILY Qty: 30 0RF tamsulosin 0.4 mg Capsule 0.4 mg PO DAILY Qty: 7 0RF hydrocodone-acetaminophen 5-325 mg tablet 1 tab PO Q6-8H PRN (Reason: moderate pain (scale score 5-6)) Qty: 12 0RF Did you review [place] [employer] for ALL controlled substances?: Yes Discussed opioids are addictive and Narcan is available by prescription or from pharmacy.: Yes Condition: Good
== END 2023-04-03 09:47 | disposition home or self-care (01) ==
LOC: MEDSURG B 08:44 → ED 08:44 → MEDSURG B 14:39
PROVIDERS: ADMIT Hospitalist; ATTEND Physician Assistant
DX: Z20.822 Contact with and (suspected) exposure to COVID-19; I10 Essential (primary) hypertension; N13.2 Hydronephrosis with renal and ureteral calculous obstruction; R10.9 Unspecified abdominal pain; D72.829 Elevated white blood cell count, unspecified; R91.8 Other nonspecific abnormal finding of lung field; Z91.199 Patient's noncompliance with other medical treatment and regimen due to unspecified reason; R79.89 Other specified abnormal findings of blood chemistry; K86.9 Disease of pancreas, unspecified; I16.0 Hypertensive urgency